=== PATIENT | male | born 1950 | race Caucasian/White ===

== ENCOUNTER → 2020-07-22 08:26 | Outpatient (CLI) | payer MEDICARE, OTHER, SELFPAY ==
--- NOTE | 2020-07-22 08:29 | CA_ITS ---
APPROVED REPORT EXAM: Comprehensive 2D, Doppler, and color-flow Echocardiogram Calliope Player: Liliya Magdaleno, RCS, RVS Ht: 6 ft 0 in Wt: 328lbs BSA: 2.63 BP: 157/95 mmHg Rhythm: Atrial Fibrillation Indications: A-FIB, ABN EKG, Pacer, Diastolic dysfunction, PHTN, CAD Echo Enhancing Agent Comments: Technically difficult exam due to extreme body habitus. 2D Dimensions IVSd 1.12 cm LVEF (Visual) 40.00 % PWd 1.40 cm LA Volume 124.80 mL LVDd 6.15 cm M: 4.2 - 5.9 LA Volume Index 47.50 mL/m2 (M/F) 16-34 LVDs 4.70 cm M: 2.5 - 4.0 Aortic Root 3.09 cm M: 3.1 - 3.7 Left Atrium 5.50 cm LVOT 1.96 cm (M/F) 1.5-2.5 M-Mode Dimensions LA Diam 5.83 cm (1.9-4.0) LVDd 6.44 cm (3.5-5.7) Ao Diam 3.43 cm (2.0-3.7) LVDs 4.76 cm (3.5-5.7) EF (Teich) 50.20% EPSs 1.32 cm FS 26.10% EDV (Teich) 211.50 mL TAPSE 2.48 (<1.7) ESV (Teich) 105.40 mL LV Diastology E Decel Time 230.00 (160-240 msec) E/A Ratio 1.19 MED E' 6.70 (< 7 cm/sec) MED A' 7.40 cm/s E'/MED E' Ratio 12.43 (>14) LAT E' 7.10 (<10 cm/sec) LAT A' 7.40 cm/s E/LAT E' Ratio 11.73 (>14) Aortic Valve LVOT Max 117.00 (70-110 cm/s) LVOT VTI 25.42 cm AoV Peak Lucas. 215.00 (50-130 cm/s) AI PHT 579.00 ms AO Peak GR. 18.50 mmHg AO Mean GR. 11.00 (<5 mmHg) AO VTI 48.64 (18-25 cm) JACE (VTI) 1.58 (2.5-4.5 cm2) Mitral Valve MV A Velocity 70.00 (40-130 cm/s) E/A Ratio 1.19 MV Decel. Time 230.00 (160-240 ms) Pulmonary Valve PV Peak Velocity 84.00 (50-150 cm/s) Tricuspid Valve TR P. Velocity 274.00 cm/s RAP Estimate 10.00 mmHg RVSP 40.00 mmHg Left Ventricle Left atrium is mildly enlarged, left ventricle is normal size, mild concentric left ventricular hypertrophy, visually estimated ejection fraction 50% with no regional wall motion abnormality, diastolic parameters are inconclusive. Right Ventricle Right atrium and right ventricle are mildly enlarged with normal contractility. Aortic Valve Aortic valve is thickened and calcified without aortic stenosis, there is mild aortic insufficiency. Mitral Valve Mitral valve is minimally thickened, there is mild mitral regurgitation. Tricuspid Valve Tricuspid grossly normal, there is mild tricuspid regurgitation, calculated right ventricular systolic pressure is 40 mmHg. Pulmonic Valve Pulmonic valve is poorly visualized. Great Vessels Aortic root is normal size. Pericardium No significant pericardial effusion noted. Conclusion 1. Biatrial enlargement, normal left ventricular size, mild concentric left ventricular hypertrophy, visually estimated ejection fraction 50% with no regional wall motion abnormality, diastolic parameters are inconclusive. 2. Mildly enlarged right ventricle with normal contractility. 3. Mild aortic, mild mitral and tricuspid regurgitation, calculated right ventricular systolic pressure of 40 mmHg. 4. No significant pericardial effusion noted. Electronically signed by : Jeramie Ferguson, 07/22/2020 15:08:21
== END ==
PROVIDERS: PCP Internal Medicine; Visit Provider Physician Assistant
DX: I48.0 Paroxysmal atrial fibrillation; R94.31 Abnormal electrocardiogram [ECG] [EKG]; I11.9 Hypertensive heart disease without heart failure; I27.20 Pulmonary hypertension, unspecified; Z95.0 Presence of cardiac pacemaker
CPT/HCPCS: 93306

== ENCOUNTER → 2020-07-26 08:01 | Outpatient (CLI) | payer MEDICARE, OTHER, SELFPAY ==
[2020-07-26 08:19] LABS: Basophils # 0.1 K/mm3 (0-0.2); Basophils % 0.7 % (0.1-2.0); Eosinophils # 0.4 K/mm3 (0.0-0.4); Eosinophils % 5.8 % (0.1-12.0); Hematocrit 37.3 % (42.0-52.0); Hemoglobin 13.3 g/dL (14.1-18.0); Lymphocytes # 2.4 K/mm3 (0.7-4.5); Lymphocytes % 35.4 % (10-50); Mean Corpuscular HGB Conc 35.7 g/dL (31.8-35.4); Mean Corpuscular Hemoglobin 32.8 pg (27.0-31.2); Mean Corpuscular Volume 91.9 fl (80-94); Mean Platelet Volume 8.7 fl (7.4-10.4); Monocytes # 0.4 K/mm3 (0.1-1.0); Monocytes % 6.1 % (1.7-9.3); Neutrophils # 3.6 K/mm3 (1.8-7.8); Neutrophils % 52.1 % (37.0-80.0); Platelet Count 189 K/mm3 (142-424); Red Blood Count 4.06 M/mm3 (4.60-6.20); Red Cell Distribution Width 13.7 % (11.5-17.5); White Blood Count 6.9 K/mm3 (4.8-10.8)
[2020-07-26 09:59] LABS: Alanine Aminotransferase 26 U/L (12-78); Albumin Level 3.7 g/dl (3.5-5.0); Alkaline Phosphatase 84 U/L (38-126); Anion Gap 12.9 mEq/L (5-15); Aspartate Amino Transferase 38 U/L (17-59); Bilirubin,Indirect 0.9 mg/dL (0.0-0.9); Bilirubin,Total 0.9 mg/dl (0.2-1.3); Bilirubin,Unconjugated 0.9 mg/dL (0.0-1.1); Blood Urea Nitrogen 20 mg/dl (9-20); Calcium 8.7 mg/dl (8.4-10.2); Carbon Dioxide 24 mmol/L (22.0-30.0); Chloride 105 mmol/L (98-107); Estimated Glomerular Filt Rate 50 ml/min (>60); GFR (African American) 61 ML/MIN (>60); Glucose 158 mg/dl (74-100); Potassium 3.9 mmoL/L (3.5-5.1); Sodium 138 mmol/L (136-145); Total Protein,Serum 6.2 g/dl (6.3-8.2)
[2020-07-26 10:05] LABS: NT Pro Brain Natriuretic Pep. 547 pg/mL (0-125)
== END ==
PROVIDERS: Internal Medicine; Visit Provider Physician Assistant
DX: I50.9 Heart failure, unspecified (principal); E11.9 Type 2 diabetes mellitus without complications; I11.0 Hypertensive heart disease with heart failure
CPT/HCPCS: 36415; 80048; 80076; 83880; 85025

== ENCOUNTER → 2020-08-26 07:50 | Outpatient (CLI) | payer MEDICARE, OTHER, SELFPAY ==
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
[2020-08-26 09:20] LABS: Anion Gap 11.4 mEq/L (5-15); Blood Urea Nitrogen 27 mg/dl (9-20); Calcium 8.8 mg/dl (8.4-10.2); Carbon Dioxide 28 mmol/L (22.0-30.0); Chloride 104 mmol/L (98-107); Estimated Glomerular Filt Rate 55 ml/min (>60); GFR (African American) 66 ML/MIN (>60); Glucose 141 mg/dl (74-100); Potassium 4.4 mmoL/L (3.5-5.1); Sodium 139 mmol/L (136-145)
== END ==
PROVIDERS: PCP Internal Medicine; Visit Provider Physician Assistant
DX: I27.20 Pulmonary hypertension, unspecified; I48.0 Paroxysmal atrial fibrillation; R06.00 Dyspnea, unspecified; R60.9 Edema, unspecified; R94.31 Abnormal electrocardiogram [ECG] [EKG]; Z95.0 Presence of cardiac pacemaker; I10 Essential (primary) hypertension
CPT/HCPCS: 36415; 80048; 93976

== ENCOUNTER → 2020-08-30 10:21 | Outpatient (CLI) | payer MEDICARE, OTHER, SELFPAY ==
[2020-08-30 10:48] LABS: Hemoglobin A1C 5.7 % (4.0-6.0)
[2020-08-30 10:54] LABS: Chloride 105 mmol/L (98-107); Potassium 4.6 mmoL/L (3.5-5.1); Sodium 138 mmol/L (136-145)
[2020-08-30 11:09] LABS: Anion Gap 14.6 mEq/L (5-15); Blood Urea Nitrogen 45 mg/dl (9-20); Calcium 9.2 mg/dl (8.4-10.2); Carbon Dioxide 23 mmol/L (22.0-30.0); Estimated Glomerular Filt Rate 31 ml/min (>60); GFR (African American) 38 ML/MIN (>60); Glucose 144 mg/dl (74-100)
[2020-08-30 11:25] LABS: Uric Acid 8.8 mg/dl (3.5-8.5)
== END ==
PROVIDERS: Internal Medicine; Visit Provider Physician Assistant
DX: R73.01 Impaired fasting glucose (principal); I10 Essential (primary) hypertension; E78.5 Hyperlipidemia, unspecified; Z95.0 Presence of cardiac pacemaker
CPT/HCPCS: 80048; 83036; 84550

== ENCOUNTER → 2020-09-07 08:30 | Outpatient (CLI) | payer MEDICARE, OTHER, SELFPAY ==
[2020-09-07 11:48] LABS: Anion Gap 10.1 mEq/L (5-15); Blood Urea Nitrogen 33 mg/dl (9-20); Calcium 8.5 mg/dl (8.4-10.2); Carbon Dioxide 26 mmol/L (22.0-30.0); Chloride 105 mmol/L (98-107); Estimated Glomerular Filt Rate 43 ml/min (>60); GFR (African American) 52 ML/MIN (>60); Glucose 117 mg/dl (74-100); Potassium 5.1 mmoL/L (3.5-5.1); Sodium 136 mmol/L (136-145)
== END ==
PROVIDERS: Visit Provider Physician Assistant
DX: I11.9 Hypertensive heart disease without heart failure (principal); I27.20 Pulmonary hypertension, unspecified; I48.0 Paroxysmal atrial fibrillation; R06.00 Dyspnea, unspecified; R94.31 Abnormal electrocardiogram [ECG] [EKG]; Z90.5 Acquired absence of kidney; Z95.0 Presence of cardiac pacemaker
CPT/HCPCS: 36415; 80048

== ENCOUNTER → 2020-09-09 14:14 | Outpatient (POV) | payer MEDICARE, OTHER, SELFPAY | PROVIDERS: Visit Provider Internal Medicine Nephrology | DX: Z00.00 Encounter for general adult medical examination without abnormal findings (principal) ==

== ENCOUNTER → 2020-09-20 14:13 | Outpatient (CLI) | payer MEDICARE, OTHER, SELFPAY ==
[2020-09-20 15:12] LABS: Anion Gap 12.2 mEq/L (5-15); Blood Urea Nitrogen 36 mg/dl (9-20); Calcium 8.8 mg/dl (8.4-10.2); Carbon Dioxide 26 mmol/L (22.0-30.0); Chloride 103 mmol/L (98-107); Estimated Glomerular Filt Rate 40 ml/min (>60); GFR (African American) 48 ML/MIN (>60); Glucose 130 mg/dl (74-100); Potassium 5.2 mmoL/L (3.5-5.1); Sodium 136 mmol/L (136-145)
== END ==
PROVIDERS: Visit Provider Physician Assistant
DX: I11.9 Hypertensive heart disease without heart failure (principal); I27.20 Pulmonary hypertension, unspecified; I48.0 Paroxysmal atrial fibrillation; R06.00 Dyspnea, unspecified; R94.31 Abnormal electrocardiogram [ECG] [EKG]; Z90.5 Acquired absence of kidney; Z95.0 Presence of cardiac pacemaker
CPT/HCPCS: 36415; 80048

== ENCOUNTER → 2020-10-01 11:13 | Outpatient (CLI) | payer MEDICARE, OTHER, SELFPAY ==
[2020-10-01 11:17] LABS: Microscopic, Urine URINE MICROSCOPIC (MICROSCOPIC)
[2020-10-01 11:41] LABS: Appearance,Urine CLEAR (Clear); Bilirubin,Urine Negative (Negative); Blood, Urine Negative (Negative); Color,Urine DK YELLOW (Yellow); Glucose,Urine (UA) Negative (Negative); Ketones,Urine Negative (Negative); Leukocyte Esterase,Urine Negative (Negative); Nitrate,Urine Negative (Negative); Protein,Urine 3+ (Negative); Specific Gravity, Urine >= 1.030 (1.005-1.030); Urobilinogen,Urine 0.2 EU/dl (0.2)
[2020-10-01 11:42] LABS: Basophils % 0.6 % (0.1-2.0); Eosinophils # 0.4 K/mm3 (0.0-0.4); Eosinophils % 5.7 % (0.1-12.0); Hematocrit 38.6 % (42.0-52.0); Hemoglobin 13.6 g/dL (14.1-18.0); Lymphocytes # 2.3 K/mm3 (0.7-4.5); Lymphocytes % 33.1 % (10-50); Mean Corpuscular HGB Conc 35.2 g/dL (31.8-35.4); Mean Corpuscular Hemoglobin 33.8 pg (27.0-31.2); Mean Corpuscular Volume 96.1 fl (80-94); Mean Platelet Volume 7.6 fl (7.4-10.4); Monocytes # 0.4 K/mm3 (0.1-1.0); Monocytes % 5.9 % (1.7-9.3); Neutrophils # 3.8 K/mm3 (1.8-7.8); Neutrophils % 54.8 % (37.0-80.0); Platelet Count 170 K/mm3 (142-424); Red Blood Count 4.01 M/mm3 (4.60-6.20); Red Cell Distribution Width 13.9 % (11.5-17.5); White Blood Count 6.9 K/mm3 (4.8-10.8)
[2020-10-01 11:49] LABS: Bacteria,Urine Trace /lpf; Squamous Epithelial Cell,Urine Occasional #/hpf (0-5); WBC,Urine Occasional #/hpf (0-3)
[2020-10-01 11:50] LABS: Creatinine,Urine Random 175 mg/dL (Not Estab.)
[2020-10-01 12:12] LABS: Anion Gap 12.2 mEq/L (5-15); Blood Urea Nitrogen 29 mg/dl (9-20); Calcium 8.7 mg/dl (8.4-10.2); Carbon Dioxide 26 mmol/L (22.0-30.0); Chloride 103 mmol/L (98-107); Estimated Glomerular Filt Rate 43 ml/min (>60); GFR (African American) 52 ML/MIN (>60); Glucose 137 mg/dl (74-100); Phosphorous 3.4 mg/dl (2.5-4.5); Potassium 5.2 mmoL/L (3.5-5.1); Sodium 136 mmol/L (136-145)
[2020-10-01 12:13] LABS: Anion Gap 12.3 mEq/L (5-15); Blood Urea Nitrogen 29 mg/dl (9-20); Calcium 8.7 mg/dl (8.4-10.2); Carbon Dioxide 26 mmol/L (22.0-30.0); Chloride 104 mmol/L (98-107); Estimated Glomerular Filt Rate 43 ml/min (>60); GFR (African American) 52 ML/MIN (>60); Glucose 138 mg/dl (74-100); Potassium 5.3 mmoL/L (3.5-5.1); Sodium 137 mmol/L (136-145)
[2020-10-01 12:24] LABS: Intact Parathyroid Hormone 210.5 pg/mL (7.5-53.5)
[2020-10-01 12:30] LABS: 25-OH Vitamin D, Total 20.5 ng/mL (30-100)
== END ==
PROVIDERS: Visit Provider Physician Assistant
DX: I11.9 Hypertensive heart disease without heart failure (principal); I27.20 Pulmonary hypertension, unspecified; I48.0 Paroxysmal atrial fibrillation; R06.00 Dyspnea, unspecified; R60.9 Edema, unspecified; Z90.5 Acquired absence of kidney; Z95.0 Presence of cardiac pacemaker; N17.9 Acute kidney failure, unspecified; E55.9 Vitamin D deficiency, unspecified
CPT/HCPCS: 36415; 80048; 80069; 81001; 82306; 82330; 82570; 83970; 84155; 85025

== ENCOUNTER → 2020-10-12 14:05 | Outpatient (CLI) | payer MEDICARE, OTHER, SELFPAY ==
[2020-10-12 14:57] LABS: T4 (Thyroxine) 8.3 ug/dl (5.53-11.0)
[2020-10-12 18:37] LABS: Thyroid Stimulating Hormone 0.77 uIU/mL (0.465-4.68)
== END ==
PROVIDERS: Visit Provider Internal Medicine
DX: R00.0 Tachycardia, unspecified (principal)
CPT/HCPCS: 84436; 84443

== ENCOUNTER → 2021-01-06 08:30 | Outpatient (CLI) | payer MEDICARE, OTHER, SELFPAY ==
[2021-01-06 08:38] LABS: Microscopic, Urine URINE MICROSCOPIC (MICROSCOPIC)
[2021-01-06 09:02] LABS: Appearance,Urine CLEAR (Clear); Bilirubin,Urine Negative (Negative); Blood, Urine Negative (Negative); Color,Urine YELLOW (Yellow); Glucose,Urine (UA) Negative (Negative); Ketones,Urine Negative (Negative); Leukocyte Esterase,Urine Negative (Negative); Nitrate,Urine Negative (Negative); PH,Urine 5.5 (5.0-8.5); Protein,Urine 2+ (Negative); Specific Gravity, Urine >= 1.030 (1.005-1.030); Urobilinogen,Urine 0.2 EU/dl (0.2)
[2021-01-06 09:18] LABS: Creatinine,Urine Random 165 mg/dL (Not Estab.)
[2021-01-06 09:43] LABS: Albumin Level 4.1 g/dl (3.5-5.0); Anion Gap 15.8 mEq/L (5-15); Blood Urea Nitrogen 29 mg/dl (9-20); Calcium 9.2 mg/dl (8.4-10.2); Carbon Dioxide 21 mmol/L (22.0-30.0); Chloride 106 mmol/L (98-107); Estimated Glomerular Filt Rate 43 ml/min (>60); GFR (African American) 52 ML/MIN (>60); Glucose 143 mg/dl (74-100); Phosphorous 3.7 mg/dl (2.5-4.5); Potassium 4.8 mmoL/L (3.5-5.1); Sodium 138 mmol/L (136-145)
[2021-01-07 08:51] LABS: Hep A Ab, IgM Negative (Negative); Hepatitis B Core Antibody IgM Negative (Negative); Hepatitis B Surface Antigen Negative (Negative); Hepatitis C Antibody <0.1 s/co ratio (0.0-0.9)
[2021-01-07 12:17] LABS: Complement C3 122 mg/dL (82-167)
[2021-01-07 13:42] LABS: Immunoglobulin A, Qn 207 mg/dL (61-437); Immunoglobulin G, Qn 942 mg/dL (603-1613); Immunoglobulin M, Qn 56 mg/dL (20-172)
[2021-01-07 14:12] LABS: Albumin 3.8 g/dL (2.9-4.4); Alpha-1-Globulin 0.2 g/dL (0.0-0.4); Alpha-2-Globulin 0.7 g/dL (0.4-1.0); Gamma Globulin 0.9 g/dL (0.4-1.8); Protein, Total 6.6 g/dL (6.0-8.5)
[2021-01-08 15:27] LABS: Antinuclear Antibodies, IFA Negative (.)
[2021-01-24 12:53] LABS: Free Kappa Lt Chains 45.3; Free Lambda Lt Chains 31.5
== END ==
PROVIDERS: Visit Provider Internal Medicine Nephrology
DX: N18.32 Chronic kidney disease, stage 3b (principal); R80.1 Persistent proteinuria, unspecified; R53.83 Other fatigue
CPT/HCPCS: 36415; 80069; 80074; 81001; 82570; 82784; 83883; 84155; 84165; 86038; 86161; 86334

== ENCOUNTER → 2021-01-24 15:30 | Outpatient (POV) | payer MEDICARE, OTHER, SELFPAY | PROVIDERS: Visit Provider Internal Medicine Nephrology | DX: Z00.00 Encounter for general adult medical examination without abnormal findings (principal) ==

== ENCOUNTER → 2021-06-06 12:30 | Outpatient (CLI) | payer MEDICARE, OTHER, SELFPAY ==
[2021-06-06 14:26] LABS: Alanine Aminotransferase 30 U/L (12-78); Albumin Level 4.3 g/dl (3.5-5.0); Albumin/Globulin Ratio 1.6 (1.1-1.8); Alkaline Phosphatase 92 U/L (38-126); Aspartate Amino Transferase 51 U/L (17-59); Bilirubin,Total 0.8 mg/dl (0.2-1.3); Blood Urea Nitrogen 31 mg/dl (9-20); Calcium 8.8 mg/dl (8.4-10.2); Carbon Dioxide 27 mmol/L (22.0-30.0); Chloride 102 mmol/L (98-107); Chol/HDL Ratio 4.6 (1-3.5); Cholesterol 172 mg/dl (140-200); Estimated Glomerular Filt Rate 50 ml/min (>60); GFR (African American) 61 ML/MIN (>60); Globulin 2.7 g/dL (1.3-3.2); Glucose 100 mg/dl (74-100); HDL Cholesterol 37 mg/dl (40-60); Sodium 137 mmol/L (136-145); Triglycerides 208 mg/dl (30-150); VLDL Cholesterol 42 mg/dL (0-40)
[2021-06-06 14:37] LABS: Direct LDL Cholesterol 82.34 mg/dL (100-129)
[2021-06-06 14:57] LABS: Prostate Specific Ag Screen 1.9 ng/ml (0.0-4.0)
== END ==
PROVIDERS: Visit Provider Internal Medicine
DX: I11.0 Hypertensive heart disease with heart failure (principal); I50.32 Chronic diastolic (congestive) heart failure; E78.5 Hyperlipidemia, unspecified; M10.9 Gout, unspecified; Z12.5 Encounter for screening for malignant neoplasm of prostate
CPT/HCPCS: 80053; 80061; 84550; G0103

== ENCOUNTER → 2021-06-24 12:45 | Outpatient (CLI) | payer MEDICARE, OTHER, SELFPAY ==
[2021-06-24 16:23] LABS: Potassium 4.7 mmoL/L (3.5-5.1)
== END ==
PROVIDERS: Visit Provider Internal Medicine
DX: E87.5 Hyperkalemia (principal)
CPT/HCPCS: 84132

== ENCOUNTER → 2021-07-14 13:43 | Outpatient (CLI) | payer MEDICARE, OTHER, SELFPAY ==
[2021-07-14 14:23] LABS: Basophils # 0.1 K/mm3 (0-0.2); Basophils % 0.8 % (0.1-2.0); Eosinophils # 0.5 K/mm3 (0.0-0.4); Hematocrit 40.3 % (42.0-52.0); Hemoglobin 13.8 g/dL (14.1-18.0); Lymphocytes # 2.5 K/mm3 (0.7-4.5); Lymphocytes % 27.9 % (10-50); Mean Corpuscular HGB Conc 34.1 g/dL (31.8-35.4); Mean Corpuscular Hemoglobin 34.7 pg (27.0-31.2); Mean Corpuscular Volume 101.6 fl (80-94); Mean Platelet Volume 8.3 fl (7.4-10.4); Monocytes # 0.5 K/mm3 (0.1-1.0); Neutrophils # 5.3 K/mm3 (1.8-7.8); Neutrophils % 59.3 % (37.0-80.0); Platelet Count 196 K/mm3 (142-424); Red Blood Count 3.97 M/mm3 (4.60-6.20); Red Cell Distribution Width 14.2 % (11.5-17.5); White Blood Count 8.9 K/mm3 (4.8-10.8)
[2021-07-14 14:59] LABS: Creatinine,Urine Random 199 mg/dL (Not Estab.)
[2021-07-14 15:10] LABS: Albumin Level 4.3 g/dl (3.5-5.0); Blood Urea Nitrogen 39 mg/dl (9-20); Calcium 8.9 mg/dl (8.4-10.2); Carbon Dioxide 22 mmol/L (22.0-30.0); Chloride 103 mmol/L (98-107); Estimated Glomerular Filt Rate 40 ml/min (>60); GFR (African American) 48 ML/MIN (>60); Glucose 127 mg/dl (74-100); Phosphorous 4.4 mg/dl (2.5-4.5); Sodium 135 mmol/L (136-145)
== END ==
PROVIDERS: Visit Provider Internal Medicine Nephrology
DX: N18.32 Chronic kidney disease, stage 3b (principal)
CPT/HCPCS: 36415; 80069; 82043; 82570; 85025

== ENCOUNTER → 2021-07-18 12:43 | Outpatient (POV) | payer MEDICARE, OTHER, SELFPAY | PROVIDERS: Visit Provider Internal Medicine Nephrology | DX: Z00.00 Encounter for general adult medical examination without abnormal findings (principal) ==

== ENCOUNTER → 2021-12-05 13:24 | Outpatient (CLI) | payer MEDICARE, OTHER, SELFPAY ==
[2021-12-05 14:03] LABS: Basophils % 0.6 % (0.1-2.0); Eosinophils # 0.5 K/mm3 (0.0-0.4); Eosinophils % 7.8 % (0.1-12.0); Hematocrit 40.2 % (42.0-52.0); Lymphocytes % 46.1 % (10-50); Mean Corpuscular HGB Conc 32.5 g/dL (31.8-35.4); Mean Corpuscular Hemoglobin 33.8 pg (27.0-31.2); Mean Corpuscular Volume 104.1 fl (80-94); Mean Platelet Volume 8.4 fl (7.4-10.4); Monocytes # 0.4 K/mm3 (0.1-1.0); Monocytes % 6.1 % (1.7-9.3); Neutrophils # 2.5 K/mm3 (1.8-7.8); Neutrophils % 39.4 % (37.0-80.0); Platelet Count 187 K/mm3 (142-424); Red Blood Count 3.86 M/mm3 (4.60-6.20); Red Cell Distribution Width 13.9 % (11.5-17.5); White Blood Count 6.5 K/mm3 (4.8-10.8)
[2021-12-05 16:12] LABS: Alanine Aminotransferase 31 U/L (12-78); Albumin/Globulin Ratio 1.5 (1.1-1.8); Alkaline Phosphatase 89 U/L (38-126); Anion Gap 12.7 mEq/L (5-15); Aspartate Amino Transferase 46 U/L (17-59); Bilirubin,Total 0.5 mg/dl (0.2-1.3); Blood Urea Nitrogen 30 mg/dl (9-20); Calcium 8.9 mg/dl (8.4-10.2); Carbon Dioxide 25 mmol/L (22.0-30.0); Chloride 105 mmol/L (98-107); Chol/HDL Ratio 4.6 (1-3.5); Cholesterol 187 mg/dl (140-200); Estimated Glomerular Filt Rate 40 ml/min (>60); GFR (African American) 48 ML/MIN (>60); Globulin 2.7 g/dL (1.3-3.2); Glucose 110 mg/dl (74-100); HDL Cholesterol 41 mg/dl (40-60); Potassium 4.7 mmoL/L (3.5-5.1); Sodium 138 mmol/L (136-145); Total Protein,Serum 6.7 g/dl (6.3-8.2); Triglycerides 173 mg/dl (30-150); VLDL Cholesterol 35 mg/dL (0-40)
[2021-12-05 22:36] LABS: Hemoglobin A1C 5.2 % (4.0-6.0)
[2021-12-07 09:41] LABS: Direct LDL Cholesterol 109 mg/dL (100-129)
== END ==
PROVIDERS: PCP Internal Medicine; Visit Provider Internal Medicine
DX: I50.32 Chronic diastolic (congestive) heart failure (principal); I11.0 Hypertensive heart disease with heart failure; E78.5 Hyperlipidemia, unspecified; E87.5 Hyperkalemia; M10.9 Gout, unspecified; N40.1 Benign prostatic hyperplasia with lower urinary tract symptoms; Z95.0 Presence of cardiac pacemaker; Z79.899 Other long term (current) drug therapy
CPT/HCPCS: 80053; 80061; 83036; 84550; 85025

== ENCOUNTER → 2021-12-29 07:55 | Outpatient (CLI) | payer MEDICARE, OTHER, SELFPAY ==
--- NOTE | 2021-12-29 07:56 | CA_ITS ---
APPROVED REPORT EXAM: Comprehensive 2D, Doppler, and color-flow Echocardiogram City Carrier: Liliya Magdaleno, RCS, RVS Ht: 6 ft 0 in Wt: 306lbs BSA: 2.55 HR: 61 bpm BP: 136/84 mmHg Rhythm: Atrial Fibrillation Indications: Afib, Abn EKG, Pacer, SOA, CP, PHTN, Murmur Echo Enhancing Agent Comments: Technically limited acoutstic windows today as patient could not be positioned with pain from a kidney stone. 2D Dimensions IVSd 1.47 cm LVEF (Visual) 47.00 % PWd 1.18 cm LA Volume 82.70 mL LVDd 5.41 cm LA Volume Index 32.40 mL/m2 (M/F) 16-34 LVDs 3.80 cm M: 2.5 - 4.0 Aortic Root 3.58 cm Left Atrium 4.73 cm LVOT 2.26 cm (M/F) 1.5-2.5 M-Mode Dimensions LA Diam 5.87 cm (1.9-4.0) Ao Diam 3.65 cm (2.0-3.7) EPSs 0.84 cm TAPSE 1.96 (<1.7) LV Diastology E Decel Time 90.00 (160-240 msec) E/A Ratio 0.50 MED E' 4.40 (< 7 cm/sec) MED A' 6.00 cm/s E'/MED E' Ratio 8.57 (>14) LAT E' 4.90 (<10 cm/sec) LAT A' 5.60 cm/s E/LAT E' Ratio 7.69 (>14) Aortic Valve LVOT Max 94.00 (70-110 cm/s) LVOT VTI 19.73 cm AoV Peak Lucas. 166.00 (50-130 cm/s) AI PHT 585.00 ms AO Peak GR. 11.00 mmHg AO Mean GR. 5.60 (<5 mmHg) AO VTI 32.18 (18-25 cm) JACE (VTI) 2.46 (2.5-4.5 cm2) Mitral Valve MV A Velocity 75.00 (40-130 cm/s) E/A Ratio 0.50 MV Decel. Time 90.00 (160-240 ms) Pulmonary Valve PV Peak Velocity 76.00 (50-150 cm/s) VA End VMAX 57.00 cm/s Tricuspid Valve TR P. Velocity 206.00 cm/s RAP Estimate 10.00 mmHg RVSP 27.10 mmHg Left Ventricle Clinically difficult study because of the patient factors and poor acoustic windows. Left atrium is mildly enlarged, left ventricle is normal size, mild concentric left ventricular hypertrophy, estimated ejection fraction 55% with no regional wall motion abnormality, diastolic parameters are inconclusive. Right atrium and right ventricle are mildly enlarged with normal contractility, pacemaker leads in right ventricle. Aortic Valve Aortic valve is minimally thickened and fibrosed there is no aortic stenosis or aortic insufficiency. Mitral Valve Mitral valve grossly normal, there is trace mitral regurgitation. Tricuspid Valve Tricuspid grossly normal, there is trace tricuspid regurgitation, tricuspid regurgitation jet velocity is inadequate for calculation of the right ventricular systolic pressure. Pulmonic Valve Pulmonic valve is poorly visualized. Great Vessels Aortic root is normal size. Inferior vena cava is poorly visualized. Pericardium No significant pericardial effusion noted. Conclusion 1. Technically difficult study because of the patient factors and poor acoustic windows. Mild biatrial enlargement, normal left ventricular size, mild concentric left ventricular hypertrophy, estimated ejection fraction 55% with no regional wall motion abnormality, diastolic parameters are inconclusive. 2. Mildly enlarged right ventricle with normal contractility, pacemaker leads in right ventricle. 3. This mitral and tricuspid regurgitation. 4. No significant pericardial effusion noted 5. Inferior vena cava is poorly visualized. Electronically signed by : Jeramie Ferguson MD 12/30/2021 15:24:46
== END ==
PROVIDERS: PCP Internal Medicine; Visit Provider Nurse Practitioner Family
DX: I11.9 Hypertensive heart disease without heart failure (principal); I27.20 Pulmonary hypertension, unspecified; I48.91 Unspecified atrial fibrillation; R06.00 Dyspnea, unspecified; Z90.5 Acquired absence of kidney; Z95.0 Presence of cardiac pacemaker
CPT/HCPCS: 93306

== ENCOUNTER → 2022-02-06 12:46 | Outpatient (CLI) | payer MEDICARE, OTHER, SELFPAY ==
[2022-02-06 13:00] LABS: Microscopic, Urine URINE MICROSCOPIC (MICROSCOPIC)
[2022-02-06 13:13] LABS: Appearance,Urine CLEAR (Clear); Bilirubin,Urine Negative (Negative); Blood, Urine Negative (Negative); Color,Urine YELLOW (Yellow); Glucose,Urine (UA) Negative (Negative); Ketones,Urine Negative (Negative); Leukocyte Esterase,Urine Negative (Negative); Nitrate,Urine Negative (Negative); Protein,Urine 2+ (Negative); Specific Gravity, Urine 1.015 (1.005-1.030); Urobilinogen,Urine 0.2 EU/dl (0.2)
[2022-02-06 13:15] LABS: Hematocrit 41.4 % (42.0-52.0); Hemoglobin 13.8 g/dL (14.1-18.0); Mean Corpuscular HGB Conc 33.4 g/dL (31.8-35.4); Mean Corpuscular Hemoglobin 32.9 pg (27.0-31.2); Mean Corpuscular Volume 98.4 fl (80-94); Platelet Count 227 K/mm3 (142-424); Red Blood Count 4.21 M/mm3 (4.60-6.20); Red Cell Distribution Width 14.1 % (11.5-17.5)
[2022-02-06 13:35] LABS: Bacteria,Urine Trace /lpf
[2022-02-06 13:37] LABS: Creatinine,Urine Random 62 mg/dL (Not Estab.)
[2022-02-06 14:00] LABS: Albumin Level 4.1 g/dl (3.5-5.0); Anion Gap 16.7 mEq/L (5-15); Blood Urea Nitrogen 34 mg/dl (9-20); Calcium 8.6 mg/dl (8.4-10.2); Carbon Dioxide 29 mmol/L (22.0-30.0); Chloride 98 mmol/L (98-107); Estimated Glomerular Filt Rate 46 ml/min (>60); GFR (African American) 56 ML/MIN (>60); Glucose 110 mg/dl (74-100); Phosphorous 3.6 mg/dl (2.5-4.5); Potassium 4.7 mmoL/L (3.5-5.1); Sodium 139 mmol/L (136-145)
[2022-02-06 14:12] LABS: Intact Parathyroid Hormone 176.8 pg/mL (7.5-53.5)
[2022-02-06 14:17] LABS: 25-OH Vitamin D, Total 35.6 ng/mL (30-100)
== END ==
PROVIDERS: PCP Internal Medicine; Visit Provider Internal Medicine Nephrology
DX: N18.2 Chronic kidney disease, stage 2 (mild) (principal); E66.9 Obesity, unspecified; Z68.41 Body mass index [BMI] 40.0-44.9, adult
CPT/HCPCS: 36415; 80069; 81001; 82306; 82570; 83970; 84155; 85014; 85018; 85048; 85049

== ENCOUNTER → 2022-02-09 12:56 | Outpatient (POV) | payer MEDICARE, OTHER, SELFPAY | PROVIDERS: Visit Provider Internal Medicine Nephrology | DX: Z00.00 Encounter for general adult medical examination without abnormal findings (principal) ==

== ENCOUNTER → 2022-06-05 12:46 | Outpatient (CLI) | payer MEDICARE, OTHER, SELFPAY ==
[2022-06-05 14:02] LABS: Chloride 101 mmol/L (98-107); Sodium 136 mmol/L (136-145)
[2022-06-05 14:03] LABS: Potassium 4.8 mmoL/L (3.5-5.1)
[2022-06-05 14:05] LABS: Alanine Aminotransferase 25 U/L (12-78); Albumin Level 4.1 g/dl (3.5-5.0); Albumin/Globulin Ratio 1.5 (1.1-1.8); Alkaline Phosphatase 84 U/L (38-126); Anion Gap 9.8 mEq/L (5-15); Aspartate Amino Transferase 39 U/L (17-59); Bilirubin,Total 0.9 mg/dl (0.2-1.3); Blood Urea Nitrogen 26 mg/dl (9-20); Carbon Dioxide 30 mmol/L (22.0-30.0); Estimated Glomerular Filt Rate 43 ml/min (>60); GFR (African American) 52 ML/MIN (>60); Globulin 2.8 g/dL (1.3-3.2); Total Protein,Serum 6.9 g/dl (6.3-8.2)
[2022-06-05 14:06] LABS: Calcium 8.6 mg/dl (8.4-10.2); Chol/HDL Ratio 4.7 (1-3.5); Cholesterol 177 mg/dl (140-200); Glucose 108 mg/dl (74-100); HDL Cholesterol 38 mg/dl (40-60); Triglycerides 282 mg/dl (30-150); VLDL Cholesterol 56 mg/dL (0-40)
[2022-06-05 14:17] LABS: Direct LDL Cholesterol 72.72 mg/dL (100-129)
[2022-06-05 14:27] LABS: Hemoglobin A1C 5.6 % (4.0-6.0)
[2022-06-05 14:39] LABS: Uric Acid 7.1 mg/dl (3.5-8.5)
[2022-06-05 15:11] LABS: Prostate Specific Ag Screen 2.4 ng/ml (0.0-4.0)
== END ==
PROVIDERS: PCP Internal Medicine; Visit Provider Internal Medicine
DX: I49.5 Sick sinus syndrome (principal); E78.5 Hyperlipidemia, unspecified; I10 Essential (primary) hypertension; M10.9 Gout, unspecified; Z95.0 Presence of cardiac pacemaker; Z12.5 Encounter for screening for malignant neoplasm of prostate; Z79.899 Other long term (current) drug therapy
CPT/HCPCS: 80053; 80061; 83036; 84550; G0103

== ENCOUNTER 2022-06-10 13:16 | Emergency (ER) | payer MEDICARE, OTHER, SELFPAY ==
--- NOTE | 2022-06-10 13:27 | HMH.EDGENADL ---
Discharge Plan Disposition Patient Disposition: Left Against Medical Advice Condition: Good Prescriptions Prescriptions: No Action aspirin [Adult Low Dose Aspirin] 81 mg tablet,delayed release (DR/EC) 81 mg PO DAILY albuterol sulfate 0.63 mg/3 mL solution for nebulization 0.63 mg INHALATION Q4H PRN potassium chloride 20 mEq tablet extended release 20 meq PO DAILY PRN lorazepam 0.5 mg tablet 0.5 mg PO TID PRN allopurinol 300 mg tablet 300 mg PO DAILY tramadol 50 mg tablet 50 mg PO DAILY PRN baclofen 10 mg tablet 5 mg PO DAILY PRN furosemide 40 mg tablet 40 mg PO BID Qty: 180 3RF irbesartan 150 mg tablet 150 mg PO BID Qty: 180 3RF spironolactone 25 mg tablet 25 mg PO DIRECTED Qty: 90 3RF Rx Instructions: Sun/Sun/Sunday and extra if needed for fluid overload carvedilol 25 mg tablet 50 mg PO BID Qty: 360 3RF Referrals Follow up/Referrals: Arie Huerta MD [Primary Care Provider] - See instructions Clinical Impressions Clinical Impression: Hematoma Instructions Patient Instructions: DI for Hematoma (Bruise) Print Language Print Language: Faroese Discharge ED Provider: Joshua Nieto General Adult HPI General Stated complaint: LT wrist knot no accident Time Seen by Provider: 06/10/22 13:32 History of Present Illness HPI narrative: Patient presents to the emergency department with swelling to the dorsal aspect of his left wrist. He states that he was trimming trees with a chainsaw and noticed swelling to the back part of his wrist. He denies any significant pain with movement of the wrist. He currently is taking aspirin but no other blood thinner. He states he could have hit his wrist while trimming trees but is unsure. He is concerned it may be a blood clot. Related Data Home Medications Medication Instructions Recorded Confirmed albuterol sulfate 0.63 mg/3 mL 0.63 mg inhalation Q4H PRN 09/19/17 12/26/21 solution for nebulization aspirin 81 mg tablet,delayed 81 mg PO DAILY 09/19/17 12/26/21 release (Adult Low Dose Aspirin) lorazepam 0.5 mg tablet 0.5 mg PO TID PRN 09/19/17 12/26/21 potassium chloride 20 mEq 20 meq PO DAILY PRN 09/19/17 12/26/21 tablet,extended release allopurinol 300 mg tablet 300 mg PO DAILY 11/22/20 12/26/21 baclofen 10 mg tablet 5 mg PO DAILY PRN 12/26/21 12/26/21 tramadol 50 mg tablet 50 mg PO DAILY PRN 12/26/21 12/26/21 Previous Rx's Medication Instructions Recorded furosemide 40 mg tablet 40 mg PO BID #180 tabs 12/26/21 irbesartan 150 mg tablet 150 mg PO BID #180 tabs 12/26/21 spironolactone 25 mg tablet 25 mg PO DIRECTED #90 tabs 12/29/21 carvedilol 25 mg tablet 50 mg PO BID #360 tabs 01/09/22 Allergies Allergy/AdvReac Type Severity Reaction Status Date / Time No Known Allergies Allergy Verified 12/26/21 09:39 [facility] Disclaimer: The information contained in this section may have been updated after the patient was seen, as this information can be updated by other users. Medical History Atrial fibrillation Dyspnea Edema Surgical History History of left nephrectomy Social History Smoking Status: Former smoker alcohol intake: current substance use type: denies use current occupational status: retired Travel in the last 8 weeks: Inside the [facility] housing: house ROS Obtained: Yes All systems reviewed & no additional complaints except as documented Musculoskeletal Musculoskeletal: Reports other (Swelling, pain and bruising to the dorsal aspect of the left wrist) Physical Exam General General appearance: alert and in no apparent distress Head Head exam: atraumatic and normocephalic Eye Eye exam: Present normal appearance, PERRL and EOMI Respiratory Respiratory exam: Present noel
[2022-06-10 13:29] VITALS: BP 173/93; PULSE 64; RESP 16; O2SAT 97
[2022-06-10 13:30] VITALS: BP 161/93; PULSE 67; RESP 18; TEMP 36.7; O2SAT 97; BMI 36.5
[2022-06-10 13:46] VITALS: BP 145/95; PULSE 68; RESP 18; TEMP 36.7; O2SAT 97
== END 2022-06-10 13:47 | disposition left against medical advice (07) ==
PROVIDERS: Emergency Provider Emergency Medicine; PCP Internal Medicine
DX: S60.212A Contusion of left wrist, initial encounter (principal); X58.XXXA Exposure to other specified factors, initial encounter; Z79.82 Long term (current) use of aspirin; I48.91 Unspecified atrial fibrillation; Z87.09 Personal history of other diseases of the respiratory system; Z87.891 Personal history of nicotine dependence; Z90.5 Acquired absence of kidney
CPT/HCPCS: 99283

== ENCOUNTER → 2022-10-16 11:45 | Outpatient (CLI) | payer MEDICARE, OTHER, SELFPAY ==
[2022-10-16 11:56] LABS: Microscopic, Urine URINE MICROSCOPIC (MICROSCOPIC)
[2022-10-16 12:29] LABS: Basophils % 0.5 % (0.1-2.0); Eosinophils # 0.6 K/mm3 (0.0-0.4); Eosinophils % 6.3 % (0.1-12.0); Hematocrit 37.2 % (42.0-52.0); Hemoglobin 12.5 g/dL (14.1-18.0); Lymphocytes # 2.4 K/mm3 (0.7-4.5); Lymphocytes % 26.9 % (10-50); Mean Corpuscular HGB Conc 33.5 g/dL (31.8-35.4); Mean Corpuscular Hemoglobin 32.8 pg (27.0-31.2); Mean Corpuscular Volume 97.9 fl (80-94); Mean Platelet Volume 7.3 fl (7.4-10.4); Monocytes # 0.6 K/mm3 (0.1-1.0); Monocytes % 6.1 % (1.7-9.3); Neutrophils # 5.4 K/mm3 (1.8-7.8); Neutrophils % 60.3 % (37.0-80.0); Platelet Count 196 K/mm3 (142-424); Red Cell Distribution Width 13.2 % (11.5-17.5)
[2022-10-16 13:14] LABS: Appearance,Urine CLEAR (Clear); Bilirubin,Urine Negative (Negative); Blood, Urine Negative (Negative); Color,Urine YELLOW (Yellow); Glucose,Urine (UA) Negative (Negative); Ketones,Urine Negative (Negative); Leukocyte Esterase,Urine Negative (Negative); Nitrate,Urine Negative (Negative); PH,Urine 6.5 (5.0-8.5); Protein,Urine 2+ (Negative); Urobilinogen,Urine 0.2 EU/dl (0.2)
[2022-10-16 13:44] LABS: Blood Urea Nitrogen 26 mg/dl (9-20); Carbon Dioxide 27 mmol/L (22.0-30.0); Estimated Glomerular Filt Rate 50 ml/min (>60); GFR (African American) 60 ML/MIN (>60); Glucose 107 mg/dl (74-100); Potassium 5.5 mmoL/L (3.5-5.1); Sodium 137 mmol/L (136-145)
[2022-10-16 13:53] LABS: Intact Parathyroid Hormone 80.1 pg/mL (7.5-53.5)
[2022-10-16 14:07] LABS: Bacteria,Urine Trace /lpf; RBC,Urine Occasional #/hpf (0-3); Squamous Epithelial Cell,Urine Occasional #/hpf (0-5)
[2022-10-16 19:08] LABS: Anion Gap 13.5 mEq/L (5-15); Chloride 102 mmol/L (98-107)
[2022-10-16 22:40] LABS: Creatinine,Urine Random 72 mg/dL (Not Estab.)
[2022-10-17 16:48] LABS: 25-OH Vitamin D, Total 21.6 ng/mL (30-100)
== END ==
PROVIDERS: PCP Internal Medicine; Visit Provider Internal Medicine Nephrology
DX: N18.32 Chronic kidney disease, stage 3b (principal)
CPT/HCPCS: 36415; 80069; 81001; 82306; 82570; 82652; 83970; 84155; 85025

== ENCOUNTER → 2022-10-20 12:31 | Outpatient (POV) | payer MEDICARE, OTHER, SELFPAY | PROVIDERS: Visit Provider Internal Medicine Nephrology | DX: Z00.00 Encounter for general adult medical examination without abnormal findings (principal) ==

== ENCOUNTER → 2022-12-04 13:03 | Outpatient (CLI) | payer MEDICARE, OTHER, SELFPAY ==
[2022-12-04 15:53] LABS: Basophils % 0.4 % (0.1-2.0); Eosinophils # 0.6 K/mm3 (0.0-0.4); Eosinophils % 6.1 % (0.1-12.0); Hematocrit 39.7 % (42.0-52.0); Lymphocytes # 2.7 K/mm3 (0.7-4.5); Lymphocytes % 28.1 % (10-50); Mean Corpuscular HGB Conc 32.7 g/dL (31.8-35.4); Mean Corpuscular Hemoglobin 33.6 pg (27.0-31.2); Mean Corpuscular Volume 102.5 fl (80-94); Mean Platelet Volume 8.7 fl (7.4-10.4); Monocytes # 0.5 K/mm3 (0.1-1.0); Monocytes % 5.2 % (1.7-9.3); Neutrophils # 5.7 K/mm3 (1.8-7.8); Neutrophils % 60.2 % (37.0-80.0); Platelet Count 209 K/mm3 (142-424); Red Blood Count 3.87 M/mm3 (4.60-6.20); Red Cell Distribution Width 13.9 % (11.5-17.5); White Blood Count 9.5 K/mm3 (4.8-10.8)
[2022-12-04 16:23] LABS: Chloride 104 mmol/L (98-107)
[2022-12-04 16:24] LABS: Potassium 5.5 mmoL/L (3.5-5.1); Sodium 139 mmol/L (136-145)
[2022-12-04 16:26] LABS: Alanine Aminotransferase 26 U/L (12-78); Albumin Level 4.1 g/dl (3.5-5.0); Albumin/Globulin Ratio 1.5 (1.1-1.8); Alkaline Phosphatase 94 U/L (38-126); Anion Gap 17.5 mEq/L (5-15); Aspartate Amino Transferase 32 U/L (17-59); Bilirubin,Total 0.6 mg/dl (0.2-1.3); Blood Urea Nitrogen 41 mg/dl (9-20); Carbon Dioxide 23 mmol/L (22.0-30.0); Estimated Glomerular Filt Rate 43 ml/min (>60); GFR (African American) 52 ML/MIN (>60); Globulin 2.7 g/dL (1.3-3.2); Total Protein,Serum 6.8 g/dl (6.3-8.2)
[2022-12-04 16:27] LABS: Calcium 9.5 mg/dl (8.4-10.2); Chol/HDL Ratio 5.2 (1-3.5); Cholesterol 182 mg/dl (140-200); Glucose 99 mg/dl (74-100); HDL Cholesterol 35 mg/dl (40-60); Triglycerides 314 mg/dl (30-150); VLDL Cholesterol 63 mg/dL (0-40)
[2022-12-04 16:32] LABS: Hemoglobin A1C 6.1 % (4.0-6.0)
[2022-12-04 16:53] LABS: Uric Acid 6.7 mg/dl (3.5-8.5)
== END ==
PROVIDERS: PCP Internal Medicine; Visit Provider Internal Medicine
DX: I10 Essential (primary) hypertension (principal); I49.5 Sick sinus syndrome; E78.5 Hyperlipidemia, unspecified; N19 Unspecified kidney failure; M10.9 Gout, unspecified; Z95.0 Presence of cardiac pacemaker; Z79.899 Other long term (current) drug therapy
CPT/HCPCS: 80053; 80061; 83036; 84550; 85025

== ENCOUNTER → 2023-01-01 18:37 | Outpatient (CLI) | payer MEDICARE, OTHER, SELFPAY | PROVIDERS: PCP Internal Medicine; Visit Provider Internal Medicine | DX: S91.301A Unspecified open wound, right foot, initial encounter (principal); B95.7 Other staphylococcus as the cause of diseases classified elsewhere | CPT/HCPCS: 87070; 87077; 87186; 87205 ==

== ENCOUNTER 2023-06-06 13:14 | Outpatient (CLI) | payer MEDICARE, OTHER, SELFPAY ==
[2023-06-06 15:59] LABS: Alanine Aminotransferase 26 U/L (12-78); Albumin Level 4.2 g/dl (3.5-5.0); Albumin/Globulin Ratio 1.7 (1.1-1.8); Alkaline Phosphatase 87 U/L (38-126); Anion Gap 13.5 mEq/L (5-15); Aspartate Amino Transferase 41 U/L (17-59); Bilirubin,Total 0.8 mg/dl (0.2-1.3); Blood Urea Nitrogen 42 mg/dl (9-20); Calcium 8.9 mg/dl (8.4-10.2); Carbon Dioxide 22 mmol/L (22.0-30.0); Chloride 106 mmol/L (98-107); Cholesterol 173 mg/dl (140-200); Estimated Glomerular Filt Rate 35 ml/min (>60); GFR (African American) 42 ML/MIN (>60); Globulin 2.5 g/dL (1.3-3.2); Glucose 119 mg/dl (74-100); HDL Cholesterol 29 mg/dl (40-60); Potassium 5.5 mmoL/L (3.5-5.1); Sodium 136 mmol/L (136-145); Total Protein,Serum 6.7 g/dl (6.3-8.2); Triglycerides 211 mg/dl (30-150); Uric Acid 6.6 mg/dl (3.5-8.5); VLDL Cholesterol 42 mg/dL (0-40)
[2023-06-06 16:11] LABS: Direct LDL Cholesterol 77.93 mg/dL (100-129)
[2023-06-06 17:47] LABS: Hemoglobin A1C 5.5 % (4.0-6.0)
== END 2023-06-06 23:59 ==
LOC: LAB.DROPOF 13:17
PROVIDERS: PCP Internal Medicine; Visit Provider Internal Medicine
DX: I48.0 Paroxysmal atrial fibrillation (principal); I10 Essential (primary) hypertension; I50.32 Chronic diastolic (congestive) heart failure; E78.5 Hyperlipidemia, unspecified; R73.01 Impaired fasting glucose; J45.909 Unspecified asthma, uncomplicated; M10.9 Gout, unspecified; Z95.0 Presence of cardiac pacemaker; Z12.5 Encounter for screening for malignant neoplasm of prostate
CPT/HCPCS: 80053; 80061; 83036; 84550; G0103

== ENCOUNTER 2023-12-05 17:10 | Outpatient (CLI) | payer MEDICARE, OTHER, SELFPAY ==
[2023-12-05 17:19] LABS: Basophils # 0.1 K/mm3 (0-0.2); Basophils % 0.6 % (0.1-2.0); Eosinophils # 0.5 K/mm3 (0.0-0.4); Eosinophils % 6.7 % (0.1-12.0); Hemoglobin 13.4 g/dL (14.1-18.0); Lymphocytes # 2.3 K/mm3 (0.7-4.5); Lymphocytes % 30.9 % (10-50); Mean Corpuscular HGB Conc 32.7 g/dL (31.8-35.4); Mean Corpuscular Hemoglobin 33.9 pg (27.0-31.2); Mean Corpuscular Volume 103.7 fl (80-94); Mean Platelet Volume 8.9 fl (7.4-10.4); Monocytes # 0.4 K/mm3 (0.1-1.0); Monocytes % 5.9 % (1.7-9.3); Neutrophils # 4.2 K/mm3 (1.8-7.8); Platelet Count 185 K/mm3 (142-424); Red Blood Count 3.95 M/mm3 (4.60-6.20); Red Cell Distribution Width 14.4 % (11.5-17.5); White Blood Count 7.5 K/mm3 (4.8-10.8)
[2023-12-05 19:29] LABS: Albumin Level 4.4 g/dl (3.5-5.0); Chloride 102 mmol/L (98-107); Potassium 5.5 mmoL/L (3.5-5.1); Sodium 136 mmol/L (136-145)
[2023-12-05 19:31] LABS: Blood Urea Nitrogen 44 mg/dl (9-20); Estimated Glomerular Filt Rate 40 ml/min (>60); GFR (African American) 48 ML/MIN (>60)
[2023-12-05 19:32] LABS: Alanine Aminotransferase 26 U/L (12-78); Albumin/Globulin Ratio 1.6 (1.1-1.8); Alkaline Phosphatase 82 U/L (38-126); Anion Gap 15.5 mEq/L (5-15); Aspartate Amino Transferase 36 U/L (17-59); Bilirubin,Total 0.7 mg/dl (0.2-1.3); Calcium 8.6 mg/dl (8.4-10.2); Carbon Dioxide 24 mmol/L (22.0-30.0); Chol/HDL Ratio 4.6 (1-3.5); Cholesterol 187 mg/dl (140-200); Globulin 2.7 g/dL (1.3-3.2); Glucose 105 mg/dl (74-100); HDL Cholesterol 41 mg/dl (40-60); Total Protein,Serum 7.1 g/dl (6.3-8.2); Triglycerides 260 mg/dl (30-150); VLDL Cholesterol 52 mg/dL (0-40)
[2023-12-05 19:49] LABS: Direct LDL Cholesterol 71.49 mg/dL (100-129)
[2023-12-05 20:25] LABS: Uric Acid 5.4 mg/dl (3.5-8.5)
[2023-12-05 21:47] LABS: Hemoglobin A1C 5.9 % (4.0-6.0)
== END 2023-12-05 23:59 | disposition home or self-care (01) ==
LOC: LAB.DROPOF 17:10
PROVIDERS: PCP Internal Medicine; Visit Provider Internal Medicine
DX: E78.5 Hyperlipidemia, unspecified (principal); R73.02 Impaired glucose tolerance (oral); M10.9 Gout, unspecified; N18.9 Chronic kidney disease, unspecified; I12.9 Hypertensive chronic kidney disease with stage 1 through stage 4 chronic kidney disease, or unspecified chronic kidney disease
CPT/HCPCS: 80053; 80061; 83036; 84550; 85025

== ENCOUNTER 2024-06-04 09:10 | Outpatient (CLI) | payer MEDICARE, OTHER, SELFPAY ==
[2024-06-04 18:06] LABS: Basophils # 0.1 K/mm3 (0-0.2); Basophils % 0.8 % (0.1-2.0); Eosinophils # 0.6 K/mm3 (0.0-0.4); Eosinophils % 8.5 % (0.1-12.0); Hematocrit 37.8 % (42.0-52.0); Hemoglobin 12.7 g/dL (14.1-18.0); Lymphocytes # 2.3 K/mm3 (0.7-4.5); Lymphocytes % 34.4 % (10-50); Mean Corpuscular HGB Conc 33.6 g/dL (31.8-35.4); Mean Corpuscular Hemoglobin 33.7 pg (27.0-31.2); Mean Corpuscular Volume 100.3 fl (80-94); Mean Platelet Volume 10.3 fl (7.4-10.4); Monocytes # 0.5 K/mm3 (0.1-1.0); Monocytes % 7.3 % (1.7-9.3); Neutrophils # 3.2 K/mm3 (1.8-7.8); Neutrophils % 48.4 % (37.0-80.0); Platelet Count 143 K/mm3 (142-424); Red Blood Count 3.77 M/mm3 (4.60-6.20); Red Cell Distribution Width 12.8 % (11.5-17.5); White Blood Count 6.6 K/mm3 (4.8-10.8)
[2024-06-04 20:09] LABS: Alanine Aminotransferase 26 U/L (12-78); Albumin Level 4.5 g/dl (3.5-5.0); Alkaline Phosphatase 85 U/L (38-126); Anion Gap 14.2 mEq/L (5-15); Aspartate Amino Transferase 36 U/L (17-59); Bilirubin,Total 0.6 mg/dl (0.2-1.3); Blood Urea Nitrogen 39 mg/dl (9-20); Carbon Dioxide 22 mmol/L (22.0-30.0); Chloride 104 mmol/L (98-107); Chol/HDL Ratio 4.6 (1-3.5); Cholesterol 158 mg/dl (140-200); Estimated Glomerular Filt Rate 43 ml/min (>60); GFR (African American) 52 ML/MIN (>60); Globulin 2.2 g/dL (1.3-3.2); Glucose 108 mg/dl (74-100); HDL Cholesterol 34 mg/dl (40-60); Potassium 5.2 mmoL/L (3.5-5.1); Sodium 135 mmol/L (136-145); Total Protein,Serum 6.7 g/dl (6.3-8.2); Triglycerides 185 mg/dl (30-150); Uric Acid 5.5 mg/dl (3.5-8.5); VLDL Cholesterol 37 mg/dL (0-40)
[2024-06-04 20:28] LABS: Direct LDL Cholesterol 59.39 mg/dL (100-129)
[2024-06-04 22:11] LABS: Hemoglobin A1C 5.7 % (4.0-6.0)
== END 2024-06-04 23:59 | disposition home or self-care (01) ==
LOC: LAB.DROPOF 06-05 15:13
PROVIDERS: PCP Internal Medicine; Visit Provider Internal Medicine
DX: E78.5 Hyperlipidemia, unspecified (principal); R73.02 Impaired glucose tolerance (oral); M10.9 Gout, unspecified; I10 Essential (primary) hypertension
CPT/HCPCS: 80053; 80061; 83036; 84550; 85025

== ENCOUNTER 2024-12-03 09:15 | Outpatient (CLI) | payer MEDICARE, OTHER, SELFPAY ==
[2024-12-03 14:04] LABS: Albumin Level 4.2 g/dl (3.5-5.0); Chloride 99 mmol/L (98-107); Sodium 129 mmol/L (136-145)
[2024-12-03 14:06] LABS: Blood Urea Nitrogen 57 mg/dl (9-20); Creatinine,Serum 2.00 mg/dl (0.66-1.25); Estimated Glomerular Filt Rate 33 ml/min (>60); GFR (African American) 40 ML/MIN (>60); Hemoglobin A1C 5.8 % (4.0-6.0)
[2024-12-03 14:07] LABS: Alanine Aminotransferase 49 U/L (12-78); Albumin/Globulin Ratio 1.5 (1.1-1.8); Alkaline Phosphatase 58 U/L (38-126); Anion Gap 17.6 mEq/L (5-15); Aspartate Amino Transferase 89 U/L (17-59); Bilirubin,Total 1.0 mg/dl (0.2-1.3); Carbon Dioxide 19 mmol/L (22.0-30.0); Cholesterol 146 mg/dl (140-200); Globulin 2.8 g/dL (1.3-3.2); Total Protein,Serum 7.0 g/dl (6.3-8.2); Triglycerides 141 mg/dl (30-150); Uric Acid 6.2 mg/dl (3.5-8.5)
[2024-12-03 14:08] LABS: Calcium 8.7 mg/dl (8.4-10.2); Glucose 127 mg/dl (74-100); HDL Cholesterol 31 mg/dl (40-60)
[2024-12-03 15:39] LABS: Potassium 6.6 mmoL/L (3.5-5.1)
--- OUTSIDE RECORDS SUMMARY | 2024-12-04 14:29 | XMS_ITS | Clinical Summary ---
Author Organization [facility] Address [address] [place] [address] Care Team Providers Care Natural Gas Treating Unit Operator Name Role Phone Arie Huerta MD Primary Care Provider [phone] Allergies No known active allergies Medications allopurinol (Zyloprim) 300 MG tablet TAKE 1 TABLET DAILY. 09/09/2020 Active Aspirin Buf,CaCarb-MgCar b-MgO, 81 MG tablet TAKE 1 TABLET DAILY. 2020 Active carvedilol (Coreg) 25 MG tablet 2 tabs twice daily 2020 Active furosemide (Lasix) 40 MG tablet every other day. 2020 Active irbesartan (Avapro) 150 MG tablet TAKE 1 TABLET TWICE DAILY. 12/24/2012 Active LORazepam (Ativan) 0.5 MG tablet TAKE 1 TABLET 3 TIMES DAILY NEEDED. 2020 Active spironolactone (Aldactone) 25 MG tablet 2 (two) times a week. 09/09/2020 Active Active Problems Problem Noted Date Diagnosed Date Persistent proteinuria 02/09/2022 Hyperkalemia 07/18/2021 Essential hypertension 07/18/2021 Class 2 obesity due to exces s calories with body mass index (BMI) of 35.0 to 35.9 in adult 07/18/2021 ELIGIO (acute kidney injury) 09/09/2020 Acquired solitary kidney 2020 Hypertensive heart disease 2020 CKD (chronic kidney disease) stage 3, GFR 30-59 ml/min 2020 Immunizations Immunization Administration Dates Next Due [employer] COVID-19 Vaccine (Blue Cap) 18+ 07/15/19 21 Family History Medical History Relation Name Comments Other cancer Father Heart failure Mother Relation Name Status Comments Father Mother Social History Tobacco Use Types Packs/Day Years Used Date Smoking Tobacco: Former Smokeless Tobacco: Never Tobacco Cessation:Counseling Given: Not Answered Sex and Gender Information Value Date Recorded Sex Assigned at Not on file Legal Sex Male 6:09 PM EDT Gender Identity Not on file Sexual Orientation Not on file Last Filed Vital Signs Vital Sign Reading Time Taken Comments Blood Pressure 140/72 10/20/2022 12:56 PM EDT Pulse 63 10/20/2022 12:56 PM EDT Temperature - - Respiratory Rate - - Oxygen Saturation - - Inhaled Oxygen Concentration - - Weight 143 kg (315 lb) 10/20/2022 12:56 PM EDT Height 193 cm (6' 4 ) 09/09/2020 2:38 PM EDT Body Mass Index 38.34 09/09/2020 2:38 PM EDT Plan of Treatment Health Maintenance Due Date Last Done Comments [facility]-Hepatitis C Screening 1950 [facility]-Medicare Annual Wellness (AWV) 1950 [facility]-/Child/Adol SDOH Screenings 1950 [facility]-Obesity Intervention 1956 [facility]- SDOH Screenings 1968 [facility]-Adult SDOH Screenings 1968 [facility]-DTaP,Tdap,and Td Vaccine s (1 - Tdap) 1969 CT Colonography 09/08/1995 Colonoscopy 09/08/1995 FIT-DNA 09/08/1995 FIT 09/08/1995 FOBT 09/08/1995 Sigmoidoscopy 09/08/1995 [facility]-Colorectal Cancer Screening 09/08/1995 [facility]-Pneumococcal Vaccine: 50 + Years (1 of 1 - PCV) 2000 [facility]-Zoster Vaccines (1 of 2) 2000 [id number] Vaccine (2 - 20 24-25 season) 2023 07/14/2020 [facility]-Influenza Vaccine (#1) 2024 [facility]-RSV Vaccine: 60+ Years o r (1 - 1-dose 75+ series) 2025 HPV Vaccines Aged Out No longer eligi ble based on patient's age to complete this topic [facility]-HIB Vaccines Aged Out No longer e ligible based on patient's age to complete this topic [facility]-Hepatitis A Vaccines Aged Out No longer eligible based on patient's age to complete this topic [facility]-IPV Vaccines Aged Out No longer e ligible based on patient's age to complete this topic [facility]-Rotavirus Vaccines Aged Out No lo nger eligible based on patient's age to complete this topic Insurance MEDICARE AETNA Care Teams Natural Gas Treating Unit Operator Relationship Specialty Start Date End Date Arie Huerta MD [facility] [address] [place] [address] PCP - General 08/20/20
--- OUTSIDE RECORDS SUMMARY | 2024-12-04 14:29 | XMS_ITS | Clinical Summary ---
Author Organization [facility] Address [address] [place] [address] Care Team Providers Care Entry Level Truck Driver Name Role Phone Arie Huerta MD Primary Care Provider [phone] Allergies No known active allergies Medications irbesartan (AVAPRO) 300 MG tablet Take 300 mg by mouth Daily. Active allopurinol (ZYLOPRIM) 300 MG tablet Take 300 mg by mouth 2 (Two) Times a Day. Active carvedilol (COREG) 25 MG tablet Take 50 mg by mouth 2 (Two) Times a Day With Meals. Active aspirin 81 MG EC tablet Take 81 mg by mouth Daily. Active furosemide (LASIX) 40 MG tablet Take 40 mg by mouth 2 (Two) Times a Day. Active loratadine (CLARITIN) 10 MG tablet Take 10 mg by mouth Daily. Active spironolactone (ALDACTONE) 25 MG tablet Take 25 mg by mouth Daily. Sunday,, fridays Active tamsulosin (FLOMAX) 0.4 MG capsule 24 hr capsule Take 1 capsule by mouth Daily As Needed. Active baclofen (LIORESAL) 10 MG tablet Take 10 mg by mouth every night at bedtime. Active Cod Liver Oil capsule Take by mouth. Active LORazepam (ATIVAN) 0.5 MG tablet Take 0.5 mg by mouth Every 8 (Eight) Hours As Needed for Anxiety. 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 Not on file Does Anyone Keep You from Co ntacting Others or Doint Things Outside the Home? Not on file 01/19/2023 Physical Sign of Abuse Present Not on file 1 Housing Stability Answer Date Recorded Current Living Arrangements Not on file 01/07 Potentially Unsafe Housing Conditions Not on bolivar e 01/19/2023 Family and Community Support Answer Bola e Recorded Help with Day-to-Day Activities Not on file 01/19/2023 Lonely or Isolated Not on file 01/19/2023 Employment Answer Date Recorded Do you want help finding or keeping work or a lanny b? Not on file 01/19/2023 Disabilities Answer Date Recorded Concentrating, Remembering, or Making Decisions Difficulty Not on file 01/19/2023 Doing Errands Independently Difficulty Not on fi le 01/19/2023 Education Answer Date Recorded Help with school or training? Not on file Preferred Language Not on file 01/19/2023 Sex and Gender Information Value Date Recorded Sex Assigned at Not on file Legal Sex Male 11:04 AM EDT Gender Identity Not on file Sexual Orientation Not on file Last Filed Vital Signs Vital Sign Reading Time Taken Comments Blood Pressure 110/70 03/02/2021 9:21 AM EST Pulse 108 03/02/2021 9:21 AM EST Temperature - - Respiratory Rate - - Oxygen Saturation 97% 03/02/2021 9:21 AM EST Inhaled Oxygen Concentration - - Weight 132 kg (292 lb) 03/02/2021 9:21 AM EST Height 193 cm (6' 4 ) 03/02/2021 9:21 AM EST Body Mass Index 35.54 03/02/2021 9:21 AM EST Plan of Treatment Health Maintenance Due Date Last Done Comments TDAP/TD VACCINES (1 - Tdap) 1969 COLOGUARD 09/08/1995 COLON CANCER SCREENING 5 YEAR SIGMOIDOSCOPY 09/08/1995 COLONOSCOPY 09/08/1995 COLORECTAL CANCER SCREENING 09/08/1995 CT COLONOGRAPHY 09/08/1995 FECAL OCCULT BLOOD TEST 09/08/1995 FIT Testing (1 year) 09/08/1995 Pneumococcal Vaccine 50+ (1 of 1 - PCV) 2000 ZOSTER VACCINE (1 of 2) 2000 AAA SCREEN ONCE 09/08/2015 ANNUAL PHYSICAL 03/02/2021 HEPATITIS C SCREENING 03/02/2021 COVID-19 Vaccine (2 - 2023- season) 12/09/202310/2020 INFLUENZA VACCINE 01/07/2025 Insurance MEDICARE A & B Member Subscriber Plan / Payer (Ef fective 2015-Present) Name:Lobo Alvarado Member ID:[id number] Relation to Subscriber:Self Name:Lobo Alvarado Subscriber ID:[id number] Payer ID:[id number] Group ID:Not on file Type:Not on file Address: [facility] [id number] [employer] [facility] Care Teams Entry Level Truck Driver Relationship Specialty Start Date End Date Arie Huerta MD [address] [facility] [address] [place] [address] PCP - General Internal Medicine 02/25/21
== END 2024-12-03 23:59 | disposition home or self-care (01) ==
LOC: LAB.DROPOF 12-04 14:24
PROVIDERS: PCP Internal Medicine; Visit Provider Internal Medicine
DX: M10.9 Gout, unspecified (principal); R73.02 Impaired glucose tolerance (oral); E78.5 Hyperlipidemia, unspecified; I12.9 Hypertensive chronic kidney disease with stage 1 through stage 4 chronic kidney disease, or unspecified chronic kidney disease; N18.9 Chronic kidney disease, unspecified; N12 Tubulo-interstitial nephritis, not specified as acute or chronic; N39.0 Urinary tract infection, site not specified
CPT/HCPCS: 80053; 80061; 83036; 84550; 87086; 87088; 87186

== ENCOUNTER 2024-12-17 10:07 | Outpatient (CLI) | payer MEDICARE, OTHER, SELFPAY ==
[2024-12-17 18:23] LABS: Chloride 105 mmol/L (98-107); Sodium 138 mmol/L (136-145)
[2024-12-17 18:24] LABS: Potassium 5.4 mmoL/L (3.5-5.1)
[2024-12-17 18:27] LABS: Anion Gap 13.4 mEq/L (5-15); Blood Urea Nitrogen 24 mg/dl (9-20); Calcium 9.2 mg/dl (8.4-10.2); Carbon Dioxide 25 mmol/L (22.0-30.0); Creatinine,Serum 1.30 mg/dl (0.66-1.25); Estimated Glomerular Filt Rate 54 ml/min (>60); GFR (African American) 65 ML/MIN (>60); Glucose 123 mg/dl (74-100)
--- OUTSIDE RECORDS SUMMARY | 2024-12-18 10:22 | XMS_ITS | Clinical Summary ---
Author Organization [facility] Address [address] [place] [address] Care Team Providers Care Typewriter Mechanic Name Role Phone Arie Huerta MD Primary Care Provider [phone] Allergies No known active allergies Medications irbesartan [...] C SCREENING 03/02/2021 COVID-19 Vaccine (2 - 2024- season) 12/08/202410/2020 INFLUENZA VACCINE 01/07/2025 Insurance MEDICARE A & B Member Subscriber Plan / Payer (Ef fective 2015-Present) Name:Lobo Alvarado Member ID:[id number] Relation to Subscriber:Self Name:Lobo Alvarado Subscriber ID:[id number] Payer ID:[id number] Group ID:Not on file Type:Not on file Address: [facility] [id number] [facility] Care Teams Typewriter Mechanic Relationship Specialty Start Date End Date Arie Huerta MD [address] [facility] [address] [place] [address] PCP - General Internal Medicine 02/25/21
--- OUTSIDE RECORDS SUMMARY | 2024-12-18 10:22 | XMS_ITS | Clinical Summary ---
Author Organization [facility] Address [address] [place] [address] Care Team Providers Care Shift Superintendent Name Role Phone Arie Huerta MD Primary Care Provider [phone] Allergies No known active allergies Medications allopurinol [...] 2020 Immunizations Immunization Administration Dates Next Due [employer] COVID-19 Vaccine (Blue Cap) 18+ 07/15/19 21 [...] Health Maintenance Due Date Last Done Comments [facility]-Depression Screening 1950 [facility]-Hepatitis C Screening 1950 [facility]-Medicare Annual Wellness (AWV) 1950 [facility]-Infant/Child/Adol SDOH Screenings 1950 [facility]-Obesity Intervention 1956 [facility]- SDOH Screenings 1968 [facility]-Adult SDOH Screenings 1968 [facility]-DTaP,Tdap,and Td Vaccine s (1 - Tdap) 1969 CT Colonography 09/08/1995 Colonoscopy 09/08/1995 FIT-DNA 09/08/1995 FIT 09/08/1995 FOBT 09/08/1995 Sigmoidoscopy 09/08/1995 [facility]-Colorectal Cancer Screening 09/08/1995 [facility]-Pneumococcal Vaccine: 50 + Years (1 of 1 - PCV) 2000 [facility]-Zoster Vaccines (1 of 2) 2000 [id number] Vaccine (2 - 20 25-26 season) 2024 07/14/2020 [facility]-Influenza Vaccine (#1) 2024 [facility]-RSV Vaccine: [...] this topic Insurance MEDICARE AETNA Care Teams Shift Superintendent Relationship Specialty Start Date End Date Arie Huerta MD [facility] [address] [place] [address] PCP - General 08/20/20
== END 2024-12-17 23:59 | disposition home or self-care (01) ==
LOC: LAB.DROPOF 12-18 10:09
PROVIDERS: PCP Internal Medicine; Visit Provider Internal Medicine
DX: E87.5 Hyperkalemia (principal); N17.9 Acute kidney failure, unspecified; N18.9 Chronic kidney disease, unspecified
CPT/HCPCS: 80048

== ENCOUNTER 2025-01-06 14:13 | Outpatient (CLI) | payer MEDICARE, OTHER, SELFPAY ==
--- OUTSIDE RECORDS SUMMARY | 2025-01-06 14:19 | XMS_ITS | Clinical Summary ---
Author Organization [facility] Address [address] [place] [address] Care Team Providers Care Monument Installer Name Role Phone Arie Huerta MD Primary Care Provider Allergies No known active allergies Medications allopurinol [...] of 35.0 to 35.9 in adult 07/18/2021 Acquired solitary kidney 2020 Hypertensive heart disease 2020 CKD (chronic kidney disease) stage 3, GFR 30-59 ml/min 2020 Resolved Problems Problem Noted Date Diagnosed Date Resolved Date ELIGIO (acute kidney injury) 09/09/2020 Immunizations Immunization Administration Dates Next Due [employer] COVID-19 Vaccine (Blue Cap) 18+ 07/15/19 21 [...] Health Maintenance Due Date Last Done Comments [facility]-Depression Screening 1950 [facility]-Hepatitis C Screening 1950 [facility]-Medicare Annual Wellness (AWV) 1950 [facility]-Infant/Child/Adol SDOH Screenings 1950 [facility]-Obesity Intervention 1956 [facility]- SDOH Screenings 1968 [facility]-Adult SDOH Screenings 1968 [facility]-DTaP,Tdap,and Td Vaccine s (1 - Tdap) 1969 CT Colonography 09/08/1995 Colonoscopy 09/08/1995 FIT-DNA 09/08/1995 FIT 09/08/1995 FOBT 09/08/1995 Sigmoidoscopy 09/08/1995 [facility]-Colorectal Cancer Screening 09/08/1995 [facility]-Pneumococcal Vaccine: 50 + Years (1 of 1 - PCV) 2000 [facility]-Zoster Vaccines (1 of 2) 2000 [facility]-Abdominal Aortic Aneurys m (AAA) Screening 09/08/2015 [id number] Vaccine (2 - 20 25-26 season) 2024 [...] this topic Insurance MEDICARE AETNA Care Teams Monument Installer Relationship Specialty Start Date End Date Arie Huerta MD [address] [place] [address] PCP - General 08/20/20
--- OUTSIDE RECORDS SUMMARY | 2025-01-06 14:20 | XMS_ITS | Clinical Summary ---
Author Organization [facility] Address [address] [place] [address] Care Team Providers Care Day Care Home Provider Name Role Phone Arie Huerta MD Primary Care Provider [phone] Allergies No known active allergies Medications irbesartan [...] ANNUAL PHYSICAL 03/02/2021 HEPATITIS C SCREENING 03/02/2021 INFLUENZA VACCINE 11/07/2024 COVID-19 Vaccine (2 - season) 12/08/202410/2020 Insurance MEDICARE A & B Member Subscriber Plan / Payer (Ef fective 2015-Present) Name:Lobo Alvarado Member ID:[id number] Relation to Subscriber:Self Name:Lobo Alvarado Subscriber ID:[id number] Payer ID:[id number] Group ID:Not on file Type:Not on file Address: [facility] [id number] [employer] [facility] Care Teams Day Care Home Provider Relationship Specialty Start Date End Date Arie Huerta MD [address] [facility] [address] [place] [address] PCP - General Internal Medicine 02/25/21
[2025-01-06 15:28] LABS: Anion Gap 13.0 mEq/L (5-15); Blood Urea Nitrogen 25 mg/dl (9-20); Calcium 8.8 mg/dl (8.4-10.2); Carbon Dioxide 26 mmol/L (22.0-30.0); Chloride 102 mmol/L (98-107); Creatinine,Serum 1.30 mg/dl (0.66-1.25); Estimated Glomerular Filt Rate 54 ml/min (>60); GFR (African American) 65 ML/MIN (>60); Glucose 125 mg/dl (74-100); Potassium 5.0 mmoL/L (3.5-5.1); Sodium 136 mmol/L (136-145)
== END 2025-01-06 23:59 | disposition home or self-care (01) ==
LOC: LAB 14:14
PROVIDERS: PCP Internal Medicine; Visit Provider Nurse Practitioner
DX: I11.9 Hypertensive heart disease without heart failure (principal)
CPT/HCPCS: 36415; 80048